=== PATIENT | male | born 1945 | race Caucasian/White ===

== ENCOUNTER → 2017-04-15 09:06 | Outpatient (CLI) | payer MEDICARE ==
[2009-05-15 06:39] VITALS: BMI 27.1
--- NOTE | ~2017-04-15 | EC ---
PATIENT:NINA PATTERSON DATE OF SERVICE: 04/15/17 SEX: M MEDICAL RECORD: [id number] DATE OF : 47 LOCATION:[facility] AGE OF PATIENT: 71 ADMISSION DATE: 04/15/17 REFERRING PHYSICIAN: INTERPRETING PHYSICIAN: CHRISTIANO MAYORGA MD ECHOCARDIOGRAM REPORT ECHO CHARGES 4 ECHO COMPLETE CLINICAL DIAGNOSIS: HTN/AI/ ECHOCARDIOGRAPHIC MEASUREMENTS (adult normal given) AC root (d.<3.7cm) 3.4 cm LV Septum d (<1.2 cm> 1.5 cm Valve Excursion 1.1 cm LV Septum (systole) 2.4 cm Left Atria (s.<4.0cm> 3.6 cm LVPW d(<1.2cm) 1.3 cm RV (d.<2.3cm) 2.8 cm LVPW (sytole) 2.2 cm LV diastole(<5.6CM) 5.3 cm MV E-F(>70mm/sec) cm LV systole 2.3 cm LVOT Diameter 1.9 cm MV exc.(>10mm) cm Est.ejection fraction (50-75%) % Pericardial Effusion N DOPPLER: LVIT cm/sec A 67.0 cm/sec E 56.0 cm/sec LA cm/sec RVSP 39.3 mmHg LVOT 92.0 cm/sec AOP1/2T 454.0m/s Asc. Ao 316 cm/sec RVOT 65.0 cm/sec RA cm/sec PA 87.0 cm/sec AV Gradient Peak 40.0 mmHg AV Mean 22.0 mmHg AV Area 0.5 cm MV Gradient Peak 4.7 mmHg MV Mean 1.3 mmHg MV Area cm COMMENTS: Neurosurgery Physician: Miguel ARMENTAOE Mixologist: 4 Dr. Mayorga TAPE# PACS DATE OF SERVICE: 04/15/2017 PROCEDURE: Transthoracic echocardiogram. FINDINGS: 1. The left ventricle is shown to have mild concentric left ventricular hypertrophy with inflow characteristics consistent with diastolic dysfunction. 2. The left atrium is normal size, normal function. 3. The aortic valve is shown to have thickened leaflets and evidence of aortic stenosis that is at least in the moderate range with a peak gradient that was ECHOCARDIOGRAM REPORT [id number] NINA PATTERSON captured at 40 mmHg, a mean gradient of 22 mmHg. 4. The mitral valve has trace mitral regurgitation. 5. The tricuspid valve has mild tricuspid regurgitation. 6. The pericardium is normal. 7. The pulmonic valve has mild pulmonic insufficiency. 8. The right atrium is moderately enlarged. 9. The right ventricle is normal size, normal function. FINAL IMPRESSION: The patient has evidence of hypertensive heart disease as well as aortic stenosis. It may be reasonable to go for the transesophageal echocardiogram to further delineate the valve structure and stenotic area. TRANSINT:[id number] Voice Confirmation ID: [id number] DOCUMENT ID: [id number] CHRISTIANO MAYORGA MD at 1213 CC: [id number] DICTATION DATE: 04/16/17 0750 HOMICIDE INVESTIGATOR: 04/16/17 1117 [facility] CLI 04/15/17 [address] [place] [address]
== END | disposition home or self-care (01) ==
LOC: D.ECHO 03-09 10:30
DX: I35.1 Nonrheumatic aortic (valve) insufficiency (principal); I35.0 Nonrheumatic aortic (valve) stenosis; I10 Essential (primary) hypertension